=== PATIENT | female | born 1945 | race Native Hawaiian/Other Pacific Islander ===

== ENCOUNTER 2016-11-27 10:11 | Outpatient (CLI) | payer OTHER | END 2016-11-27 11:45 | disposition home or self-care (01) | LOC: MAMMO 10:11 | DX: Z12.31 Encounter for screening mammogram for malignant neoplasm of breast (principal) | CPT/HCPCS: G0202-TC ==

== ENCOUNTER 2019-01-13 10:33 | Outpatient (CLI) | payer OTHER | END 2019-01-13 19:26 | disposition home or self-care (01) | LOC: MAMMO 10:33 | DX: Z12.31 Encounter for screening mammogram for malignant neoplasm of breast (principal) ==

== ENCOUNTER 2020-01-16 13:00 | Outpatient (CLI) | payer OTHER | END 2020-01-16 22:27 | disposition home or self-care (01) | LOC: MAMMO 13:00 | DX: Z12.31 Encounter for screening mammogram for malignant neoplasm of breast (principal) ==

== ENCOUNTER 2021-01-21 15:04 | Outpatient (CLI) | payer OTHER | END 2021-01-21 19:29 | disposition home or self-care (01) | LOC: MAMMO 15:04 | PROVIDERS: ATTEND Obstetrics & Gynecology | DX: Z12.31 Encounter for screening mammogram for malignant neoplasm of breast (principal) ==

== ENCOUNTER 2021-03-07 10:53 | Outpatient (CLI) | payer OTHER | END 2021-03-07 19:20 | disposition home or self-care (01) | LOC: RAD 10:53 | PROVIDERS: ATTEND Internal Medicine | DX: N95.8 Other specified menopausal and perimenopausal disorders (principal) ==

== ENCOUNTER 2022-11-02 09:07 | Outpatient (CLI) | payer OTHER | END 2022-11-02 21:44 | disposition home or self-care (01) | LOC: MAMMO 09:07 | PROVIDERS: ATTEND Obstetrics & Gynecology | DX: Z12.31 Encounter for screening mammogram for malignant neoplasm of breast (principal) ==